=== PATIENT | male | born 1995 | race African-American/Black ===

== ENCOUNTER 2018-12-03 23:57 | Emergency (ER) | payer MEDICAID ==
[~2018-12-03] VITALS: Ht 185.4 cm; Wt 77.1 kg
[2018-12-04 00:26] VITALS: BP 117/62
[2018-12-04] MEDS ORDERED: KETOROLAC TROMETH 60MG/2ML VIAL IM ONE (03:00)
[2018-12-04] MEDS ORDERED: cefTRIAXone SOD 1,000 MG VL IM ONE (03:00)
== END 2018-12-04 03:08 | disposition home or self-care (01) ==
LOC: ER 12-04 00:04
DX: S02.5XXA Fracture of tooth (traumatic), initial encounter for closed fracture (principal); K04.7 Periapical abscess without sinus; K02.9 Dental caries, unspecified; X58.XXXA Exposure to other specified factors, initial encounter; Y93.89 Activity, other specified; Y99.8 Other external cause status; Y92.89 Other specified places as the place of occurrence of the external cause
CPT/HCPCS: 96372; 99283; J0696; J1885

== ENCOUNTER 2020-07-07 17:01 | Emergency (ER) | payer MEDICAID, OTHER ==
[~2020-07-07] VITALS: Ht 195.6 cm; Wt 81.6 kg
[2020-07-07] MEDS ORDERED: cefTRIAXone SODIUM 250 MG VL IM ONE (17:30)
[2020-07-07] MEDS ORDERED: AZITHROMYCIN 250 MG TAB PO ONE (17:30)
[2020-07-07 18:33] LABS: Urine Bacteria NONE SEEN /hpf (None Seen); Urine Blood Negative /uL (Negative); Urine Mucus FEW (None Seen); Urine Specific Gravity 1.024 (1.001-1.035); Urine WBC 8 /hpf (0 - 3)
[2020-07-07 18:42] LABS: Alcohol, Urine < 3.0 mg/dL (0-10); Amphetamine Screen, Urine NEGATIVE (NEGATIVE); Barbiturate Scree,Urine NEGATIVE (NEGATIVE); Benzodiazephine Screen, Urine NEGATIVE (NEGATIVE); Opiate Scree,Urine NEGATIVE (NEGATIVE); Phencyclidine Screen, Urine NEGATIVE (NEGATIVE)
[2020-07-07 18:57] LABS: Cannabinoid Screen, Urine POSITIVE (NEGATIVE); Cocaine Screen, Urine POSITIVE (NEGATIVE)
[2020-07-07 19:50] VITALS: BP 117/78
== END 2020-07-07 20:00 | disposition home or self-care (01) ==
LOC: ER 17:01
DX: N39.0 Urinary tract infection, site not specified (principal); F14.10 Cocaine abuse, uncomplicated; F12.10 Cannabis abuse, uncomplicated; Z20.2 Contact with and (suspected) exposure to infections with a predominantly sexual mode of transmission
CPT/HCPCS: 80307; 81001